=== PATIENT | female | born 1955 ===

== ENCOUNTER 2018-05-10 19:04 | Outpatient (REF) | payer MEDICARE, MEDICAID, SELFPAY ==
[2018-05-10 22:05] LABS: Anion Gap 9.5 mmol/L (3-11); BUN 17 mg/dL (7-18); CO2 27.5 mmol/L (21.0-32.0); CREATININE 0.91 mg/dL (0.55-1.02); Calcium 9.5 mg/dL (8.5-10.1); Chloride 105 mmol/L (98-107); Glucose 52 mg/dL (70-100); Potassium 4.4 mmol/L (3.5-5.1); Sodium 142 mmol/L (136-145)
== END 2018-05-10 19:24 ==
LOC: NCHCN 19:04
PROVIDERS: PCP Family Medicine; Visit Provider Family Medicine
DX: E11.65 Type 2 diabetes mellitus with hyperglycemia (principal); I10 Essential (primary) hypertension
CPT/HCPCS: 80048

== ENCOUNTER 2018-05-30 15:37 | Outpatient (REF) | payer MEDICARE, MEDICAID, SELFPAY ==
[2018-06-01 11:34] LABS: Measles IgG Antibody Positive
== END 2018-05-30 15:57 ==
LOC: NCHCN 15:37
PROVIDERS: PCP Family Medicine; Visit Provider Family Medicine
DX: Z01.84 Encounter for antibody response examination (principal); Z11.59 Encounter for screening for other viral diseases
CPT/HCPCS: 86765

== ENCOUNTER 2018-08-09 13:56 | Outpatient (REF) | payer MEDICARE, MEDICAID, SELFPAY ==
[2018-08-09 22:20] LABS: COMMENT (LAB VIEW ONLY) 76.05 mg/dL; Microalb ug/mg Crea 62.5 ug/mg Cr
== END 2018-08-09 14:16 ==
LOC: NCHCN 13:56
PROVIDERS: PCP Family Medicine; Visit Provider Family Medicine
DX: E11.65 Type 2 diabetes mellitus with hyperglycemia (principal)
CPT/HCPCS: 82043; 82570

== ENCOUNTER 2018-11-07 17:39 | Outpatient (REF) | payer MEDICARE, SELFPAY ==
[2018-11-07 22:41] LABS: COMMENT (LAB VIEW ONLY) 223.36 mg/dL
[2018-11-07 22:44] LABS: Microalb ug/mg Crea 74.5 ug/mg Cr
== END 2018-11-07 17:59 ==
LOC: NCHCN 17:39
PROVIDERS: PCP Family Medicine; Visit Provider Family Medicine
DX: E11.65 Type 2 diabetes mellitus with hyperglycemia (principal)
CPT/HCPCS: 82043; 82570

== ENCOUNTER 2019-02-06 22:19 | Outpatient (REF) | payer MEDICARE, SELFPAY ==
[2019-02-06 22:58] LABS: ALT 26 U/L (14-59); AST 16 U/L (15-37); Albumin 2.8 g/dL (3.4-5.0); Alkaline Phosphatase 106 U/L (46-116); Anion Gap 13.7 mmol/L (3-11); BUN 20 mg/dL (7-18); Bilirubin, Total 0.2 mg/dL (0.2-1.0); CO2 25.3 mmol/L (21.0-32.0); CREATININE 0.89 mg/dL (0.55-1.02); Calcium 9.5 mg/dL (8.5-10.1); Chloride 105 mmol/L (98-107); Glucose 62 mg/dL (74-106); Potassium 3.7 mmol/L (3.5-5.1); Sodium 144 mmol/L (136-145); TSH (W/Ref FT4) 2.49 uIU/mL (0.36-3.74); Total Protein 7.7 g/dL (6.4-8.2)
[2019-02-06 23:25] LABS: Hemoglobin A1C 7.8 % (4.5-6.2)
[2019-02-07 04:48] LABS: Vitamin D 25 Total 45.1 ng/ml (30-100)
== END 2019-02-06 22:39 ==
LOC: NCHCN 22:19
PROVIDERS: PCP Family Medicine; Visit Provider Family Medicine
DX: E11.65 Type 2 diabetes mellitus with hyperglycemia (principal); E55.9 Vitamin D deficiency, unspecified; E78.70 Disorder of bile acid and cholesterol metabolism, unspecified; I10 Essential (primary) hypertension; K59.00 Constipation, unspecified
CPT/HCPCS: 80053; 82306; 83036; 84443